=== PATIENT | female | born 1965 | race Caucasian/White ===

== ENCOUNTER 2017-06-27 12:58 | Emergency (ER) | payer OTHER ==
[~2017-06-27] VITALS: Ht 165.1 cm; Wt 59.9 kg
[~2017-06-27 12:58] MED LIST: CATAFLAM50 MG PO; DILANTIN100 MG; SEPTRA DS TABLE1 TAB PO; SYNTHROID50 MCG
[2017-06-27] MEDS ORDERED: [UNRECOGNIZED DRUG - OTHER] (13:09)
== END 2017-06-27 16:23 | disposition home or self-care (01) ==
LOC: ER 12:58
DX: R51 Headache (principal)